=== PATIENT | male | born 1980 | race Caucasian/White ===

== ENCOUNTER 2016-08-24 11:06 | Emergency (ER) ==
[2016-08-24 11:13] VITALS: BP 170/120; TEMP 97.1; BMI 33.9
[2016-08-24 12:10] LABS: BASOPHILS % (AUTO) 0.3 % (0.0-3.0); EOSINOPHILS # (AUTO) 0.1 K/ul (0.0-0.7); EOSINOPHILS % (AUTO) 0.8 % (0.0-7.0); HEMATOCRIT 49.8 % (42.0-52.0); HEMOGLOBIN 17.4 g/dl (14.0-18.0); IMMATURE GRANULOCYTE % (AUTO) 0.2 % (0.0-5.0); LYMPHOCYTES # (AUTO) 2.2 K/uL (0.60-3.4); LYMPHOCYTES % (AUTO) 20.3 (10.0-50.0); MEAN CORPUSCULAR HEMOGLOBIN 30.9 pg (27.0-31.0); MEAN CORPUSCULAR HGB CONC 34.9 (31.8-35.4); MEAN CORPUSCULAR VOLUME 88.5 fl (80.0-94.0); MONOCYTES # (AUTO) 0.8 K/uL (0.4-2.0); MONOCYTES % (AUTO) 7.1 (0-10); NEUTROPHILS # (AUTO) 7.6 K/ul (2.0-6.9); NEUTROPHILS % (AUTO) 71.3; PLATELET COUNT 210 10^3/uL (140-440); RED BLOOD COUNT 5.63 10^6/ul (4.70-6.10); WHITE BLOOD COUNT 10.66 K/ul (4.2-10.2)
[2016-08-24 12:24] LABS: PARTIAL THROMBOPLASTIN TIME 27.6 SEC (23.9-40.0); PROTHROMBIN TIME 10.4 SEC (9.3-11.0)
[2016-08-24 12:47] LABS: ALANINE AMINOTRANSFERASE 31 U/L (12-78); ALBUMIN 4.2 g/dL (3.4-5.0); ALBUMIN/GLOBULIN RATIO 1.27; ALKALINE PHOSPHATASE 105 U/L (50-136); ANION GAP 10.6; ASPARTATE AMINO TRANSFERASE 21 U/L (15-37); BILIRUBIN,TOTAL 0.53 mg/dL (0.00-1.20); BLOOD UREA NITROGEN 11 mg/dL (7-18); BUN/CREATININE RATIO 10.57; CALCIUM 9.6 mg/dL (8.2-10.2); CARBON DIOXIDE 32 mmol/L (21-32); CHLORIDE 103 mmol/L (98-107); CREATINE KINASE 117 U/L; CREATININE 1.04 mg/dL (0.60-1.10); GLUCOSE 96 mg/dL (70-100); POTASSIUM 4.6 mmol/L (3.5-5.1); SODIUM 141 mmol/L (136-145); TOTAL PROTEIN 7.5 g/dL (6.4-8.2)
[2016-08-24 12:49] LABS: CREATINE KINASE MB 3.8 ng/ml (0.0-3.6)
--- NOTE | 2016-08-24 14:24 | CT ---
EXAM: CT angiography chest HISTORY: Pain between shoulder extending to neck COMPARISON: CT chest 08/11/2014 TECHNIQUE: CT angiography chest performed with intravenous contrast. Coronal and sagittal reformat jose r images obtained. FINDINGS: Thyroid and thoracic inlet appear normal. Heart is normal in size. No pericardial effus ion. No mediastinal, hilar, or axillary lymphadenopathy. Esophagus appears normal. Visualized por tion upper abdomen demonstrates no acute abnormality. No acute abnormalities of the bones. Central airway patent. Lungs are clear. No pleural effusion or pneumothorax. Aorta normal in caliber. No aortic dissection. No filling defects in the pulmonary arteries to suggest a pulmonary embolism. IMPRESSION: 1. No aortic dissection, aneurysm, or pulmonary embolism. 2. No acute cardiopulmonary process.
[2016-08-24] MEDS ORDERED: ZESTRIL PO STA (14:36)
--- NOTE | 2016-08-24 14:47 | ED.PDOC ---
General ED Provider: Dr. RILEY MISHRA Chief Complaint: Back Pain Stated Complaint: PAIN BETWEEN SHOULDER BLADES Time Seen by Physician: 11:10 Mode of Arrival: Walk-In Information Source: Patient Exam Limitations: No limitations Nursing and Triage Documentation Reviewed and Agree: Yes Musculoskeletal Complaint Exam - Back Pain Complaint/Exam Mechanism of Injury: Reports: No known trauma Onset/Duration: 1 DAY PAIN T SPINE Symptoms Are: Resolved Timing: Constant Episodes Lasting: Hours Initial Severity: Moderate Current Severity: Mild Location: Reports: Discrete Character: Reports: Aching Aggravating: Reports: Movements Alleviating: Reports: Rest Associated Signs and Symptoms: Denies: Swelling, Redness, Bruising, Fever, Weakness, Numbness, Tingling, Abdominal pain, Flank pain, Bladder incontinence, Bowel incontinence, Weight loss, Pain with weight bearing Related History: Reports: Similar episode Review of Systems - Review Of Systems Constitutional: Reports: No symptoms Eyes: Reports: No symptoms Ears, Nose, Mouth, Throat: Reports: No symptoms Respiratory: Reports: No symptoms Cardiac: Reports: No symptoms GI: Reports: No symptoms : Reports: No symptoms Musculoskeletal: Reports: Back pain Skin: Reports: No symptoms Neurological: Reports: No symptoms Endocrine: Reports: No symptoms Hematologic/Lymphatic: Reports: No symptoms All Other Systems: Reviewed and Negative Past Medical History - Past Medical History Previously Healthy: Yes Endocrine: Reports: None Cardiovascular: Reports: None Respiratory: Reports: None Hematological: Reports: None Gastrointestinal: Reports: None Genitourinary: Reports: None Neuro/Psych: Reports: None Musculoskeletal: Reports: None Cancer: Reports: None - Surgical History General Surgical History: Reports: None (history of substance abuse) - Family History Family History: Reports: Unknown - Social History Smoking Status: Current every day smoker, Heavy tobacco smoker Hx Substance Use: Yes ([facility]) Alcohol Screening: None Physical Exam - Physical Exam Appearance: Well-appearing, No pain distress, Well-nourished Eyes: LOLLY, EOMI, Conjunctiva clear ENT: Ears normal, Nose normal, Oropharynx normal Respiratory: Airway patent, Breath sounds clear, Breath sounds equal, Respirations nonlabored Cardiovascular: RRR, Pulses normal, No rub, No murmur GI/: Soft, Nontender, No masses, Bowel sounds normal, No Organomegaly Musculoskeletal: Normal strength, ROM intact, No edema, No calf tenderness Skin: Warm, Dry, Normal color Neurological: Sensation intact, Motor intact, Reflexes intact, Cranial nerves intact, Alert, Oriented Psychiatric: Affect appropriate, Mood appropriate Interpretation - Radiology Interpretation Radiology Interpretation By: Radiologist Radiology Results: No acute changes Critical Care Note - Critical Care Note Total Time (mins): 0 Course - Course Hematology/Chemistry: 08/24/16 12:06 08/24/16 12:06 Orders, Labs, Meds: Lab Review 08/24/16 12:06 WBC 10.66 H RBC 5.63 Hgb 17.4 Hct 49.8 MCV 88.5 MCH 30.9 MCHC 34.9 RDW Coeff of Ava 12.6 Plt Count 210 Immature Gran % (Auto) 0.2 Neut % (Auto) 71.3 Lymph % (Auto) 20.3 [place] % (Auto) 7.1 Eos % (Auto) 0.8 Baso % (Auto) 0.3 Immature Gran # (Auto) 0.0 Neut # 7.6 H Lymph # 2.2 Sp[place]ding # 0.8 Eos # 0.1 Baso # 0.0 PT 10.4 INR 1.01 APTT 27.6 Sodium 141 Potassium 4.6 Chloride 103 Carbon Dioxide 32 Anion Gap 10.6 BUN 11 Creatinine 1.04 Estimated GFR (MDRD) 81.00 BUN/Creatinine Ratio 10.57 Glucose 96 Calcium 9.6 Total Bilirubin 0.53 AST 21 ALT 31 Alkaline Phosphatase 105 Total Creatine Kinase 117 CK-MB (CK-2) 3.8 H CK-MB (CK-2) % 3.59093 Troponin I < 0.0100 Total Protein 7.5 Albumin 4.2 Globulin 3.3 Albumin/Globulin Ratio 1.27 Orders Category Date Time Status EKG-(ED ONLY) Stat CARDIO 08/24/16 11:58 Completed NPO REMINDER: IMAGING ONCE CARE 08/24/16 11:59 Completed CBC W/ AUTO DIFF Stat LAB 08/24/16 12:06 Completed COMPREHENSIVE METABOLIC PANEL Stat LAB 08/24/16 12:06 Completed CREATINE KINASE Stat LAB 08/24/16 12:06 Completed PARTIAL THROMBOPLASTIN TIME Stat LAB 08/24/16 12:06 Completed PT WITH INR Stat LAB 08/24/16 12:06 Completed TROPONIN I Stat LAB 08/24/16 12:06 Completed Lisinopril [Zestril] MEDS 08/24/16 14:36 Discontinued 20 mg PO ONCE STA CTA ANGIO CHEST Stat RADS 08/24/16 11:59 Completed Medications Discontinued Medications Generic Name Dose Route Start Last Admin Trade Name Freq PRN Reason Stop Dose Admin Lisinopril 20 mg 08/24/16 14:36 08/24/16 14:43 Zestril PO 08/24/16 14:37 20 mg ONCE STA Administration Vital Signs: Temp Pulse Resp BP Pulse Ox 08/24/16 11:06 97.1 F L 82 18 170/120 H 98 Departure - Departure Time of Disposition: 15:12 Disposition: HOME SELF-CARE Discharge Problem: Backache Hypertension Qualifiers: Hypertension type: unspecified secondary hypertension Qualifier Code: (I15.9) Secondary hypertension, unspecified Instructions: Acute Low Back Pain (ED), Hypertension (ED) Condition: Good Pt referred to PMD for follow-up: No Additional Instructions: Please call your Family Physician as soon as possible to schedule a follow-up appointment. Prescriptions: Hydrocodone/Acetaminophen [K[place] 5-325 Tablet] 1 each PO Q6HR PRN #6 tablet PRN Reason: PAIN Lisinopril 20 mg PO DAILY #10 tablet Allergies/Adverse Reactions: Allergies No Known Allergies Allergy (Verified 08/24/16 11:13) Home Medications: Ambulatory Orders Hydrocodone/Acetaminophen [K[place] 5-325 Tablet] 1 each PO Q6HR PRN #6 tablet Lisinopril 20 mg PO DAILY #10 tablet 08/24/16 Disposition Discussed With: Patient, Family
== END 2016-08-24 15:11 | disposition home or self-care (01) ==
LOC: ED 11:06
DX: M54.6 Pain in thoracic spine (principal); I10 Essential (primary) hypertension; F17.210 Nicotine dependence, cigarettes, uncomplicated
CPT/HCPCS: 36415; 80053; 82550; 82553; 84484; 85025; 85610; 85730; 93005; 93010; 99283

== ENCOUNTER 2017-05-22 11:59 | Emergency (ER) ==
[2017-05-22 12:03] VITALS: BP 151/99; TEMP 99.2; BMI 27.1
--- NOTE | 2017-05-22 12:13 | ED.PDOC ---
General ED Provider: Dr. RILEY MISHRA Chief Complaint: Cough Stated Complaint: cough Time Seen by Physician: 12:00 Mode of Arrival: Walk-In Information Source: Patient Exam Limitations: No limitations Nursing and Triage Documentation Reviewed and Agree: Yes Reviewed sepsis parameters & appropriate labs ordered?: Yes System Inflammatory Response Syndrome: Not Applicable Sepsis Protocol: For patient's 13 years and over: Temp is 96.8 and below OR 101 and greater Pulse >90 BPM Resp >20/minute Acutely Altered Mental Status Are patient's symptoms suggestive of a new infection, such as: -Pneumonia -Skin, Soft Tissue -Endocarditis -UTI -Bone, Joint Infection -Implantable Device -Acute Abdominal Infection -Wound Infection -Meningitis -Blood Stream Catheter Infection -Unknown Respiratory Complaint Exam - Respiratory Complaint/Exam Onset/Duration: 1 week Symptoms Are: Still present Timing: Intermittent Initial Severity: Mild Current Severity: Mild Location: Nose, Throat, Chest Character: Reports: Non-productive cough Aggravating: Reports: None Alleviating: Reports: None Associated Signs and Symptoms: Denies: Rapid breathing, Dyspnea, Fever, Chills, Chest pain, Pleuritic chest pain, Wheezing, Hemoptysis, Dizziness, Calf pain, Calf swelling, Edema, URI, Nasal congestion, Hoarseness, Sinus discomfort, Vomiting, Sore throat, Weight loss, Decreased oral intake, Increased thirst, Increased appetite, Increased urination Related History: Reports: Similar episode History of Healthcare-Acquired Pneumonia: No Related Surgical History: Reports: None Pulmonary Embolism Risk Factors: Smoking Pseudomonas Risk Factors: Reports: None Tuberculosis Risk Factors: Reports: None Status Asthmaticus Risk Factors: Reports: None Home Oxygen Use: No Recent Stress Test: No Recent Echo/LV Function: No Current Antibiotic Use: No Current Asthma Medication Use: No Respiratory Distress: None Inadequate Respiratory Effort: No Dysphagia Present: No Stridor Present: No JVD Present: No Retractions: Not Present Sinus Tenderness: None Grunting Respirations: No Kussmaul Respirations: No Differential Diagnoses: Bronchitis Review of Systems - Review Of Systems Constitutional: Reports: Malaise Eyes: Reports: No symptoms Ears, Nose, Mouth, Throat: Reports: No symptoms Respiratory: Reports: Cough Cardiac: Reports: No symptoms GI: Reports: No symptoms : Reports: No symptoms Musculoskeletal: Reports: No symptoms Skin: Reports: No symptoms Neurological: Reports: No symptoms Endocrine: Reports: No symptoms Hematologic/Lymphatic: Reports: No symptoms All Other Systems: Reviewed and Negative Past Medical History - Past Medical History Previously Healthy: Yes Endocrine: Reports: None Cardiovascular: Reports: None Respiratory: Reports: None Hematological: Reports: None Gastrointestinal: Reports: None Genitourinary: Reports: None Neuro/Psych: Reports: None Musculoskeletal: Reports: None Cancer: Reports: None - Surgical History General Surgical History: Reports: None (history of substance abuse) - Family History Family History: Reports: Unknown - Social History Smoking Status: Current every day smoker, Light tobacco smoker Hx Substance Use: Yes ([facility]) Alcohol Screening: None Physical Exam - Physical Exam Appearance: Well-appearing, No pain distress, Well-nourished Eyes: LOLLY, EOMI, Conjunctiva clear ENT: Ears normal, Nose normal, Oropharynx normal Respiratory: Rhonchi Cardiovascular: RRR, Pulses normal, No rub, No murmur GI/: Soft, Nontender, No masses, Bowel sounds normal, No Organomegaly Musculoskeletal: Normal strength, ROM intact, No edema, No calf tenderness Skin: Warm, Dry, Normal color Neurological: Sensation intact, Motor intact, Reflexes intact, Cranial nerves intact, Alert, Oriented Psychiatric: Affect appropriate, Mood appropriate Critical Care Note - Critical Care Note Total Time (mins): 0 Course - Course Vital Signs: Temp Pulse Resp BP Pulse Ox 05/22/17 11:59 99.2 F 99 H 16 151/99 H 99 Departure - Departure Time of Disposition: 12:13 Disposition: HOME SELF-CARE Discharge Problem: Cough, Bronchitis Instructions: Acute Bronchitis (ED) Condition: Good Pt referred to PMD for follow-up: Yes Allergies/Adverse Reactions: Allergies No Known Allergies Allergy (Verified 05/22/17 12:05) Home Medications: Ambulatory Orders Lisinopril 20 mg PO DAILY #10 tablet 08/24/16
== END 2017-05-22 12:25 | disposition home or self-care (01) ==
LOC: ED 11:59
DX: J40 Bronchitis, not specified as acute or chronic (principal); F17.210 Nicotine dependence, cigarettes, uncomplicated
CPT/HCPCS: 99282

== ENCOUNTER 2017-06-27 12:50 | Emergency (ER) ==
[2017-06-27 12:56] VITALS: BP 151/102; TEMP 97; BMI 28.5
--- NOTE | 2017-06-27 13:23 | ED.PDOC ---
General ED Provider: Dr. RILEY MISHRA Chief Complaint: Tooth Problem Stated Complaint: dental pain Time Seen by Physician: 13:00 Mode of Arrival: Walk-In Information Source: Patient Exam Limitations: No limitations Nursing and Triage Documentation Reviewed and Agree: Yes Reviewed sepsis parameters & appropriate labs ordered?: Yes System Inflammatory Response Syndrome: Not Applicable Sepsis Protocol: For patient's 13 years and over: Temp is 96.8 and below OR 101 and greater Pulse >90 BPM Resp >20/minute Acutely Altered Mental Status Are patient's symptoms suggestive of a new infection, such as: -Pneumonia -Skin, Soft Tissue -Endocarditis -UTI -Bone, Joint Infection -Implantable Device -Acute Abdominal Infection -Wound Infection -Meningitis -Blood Stream Catheter Infection -Unknown System Inflammatory Response Syndrome: Not Applicable EENT Complaint Exam - Dental/Oral Complaint/Exam Mechanism of Injury: No known trauma Onset/Duration: 1 week Symptoms Are: Still present Timing: Constant Initial Severity: Moderate Current Severity: Moderate Character: Reports: Aching Aggravating: Reports: Heat, Cold Alleviating: Reports: Heat, Cold Associated Signs and Symptoms: Denies: Swelling, Discharge, Fever, Foul odor, Foul taste in mouth Related History: Reports: Similar episode Cardiac Risk Factors: Reports: None Dental/Oral Surgical History: Reports: None Tooth Findings: Present: Gross decay, Gross caries, Dental fracture Cervical Lymphadenopathy Present: No Facial Swelling Present: No Bleeding Present: No Septal Hematoma: No Foreign Body Present: No Dysphagia Present: No Drooling Present: No Asymmetrical Tonsillar Swelling Present: No Uvula Midline: No Radha-tonsillar Fluctuence: No Trismus Present: No Palatal Petechiae Present: No Scarlatinaform Rash Present: No Differential Diagnoses: Dental Caries, Fractured Tooth Review of Systems - Review Of Systems Constitutional: Reports: No symptoms Eyes: Reports: No symptoms Ears, Nose, Mouth, Throat: Reports: No symptoms Respiratory: Reports: No symptoms Cardiac: Reports: No symptoms GI: Reports: No symptoms : Reports: No symptoms Musculoskeletal: Reports: No symptoms Skin: Reports: No symptoms Neurological: Reports: No symptoms Endocrine: Reports: No symptoms Hematologic/Lymphatic: Reports: No symptoms All Other Systems: Reviewed and Negative Past Medical History - Past Medical History Previously Healthy: Yes Endocrine: Reports: None Cardiovascular: Reports: None Respiratory: Reports: None Hematological: Reports: None Gastrointestinal: Reports: None Genitourinary: Reports: None Neuro/Psych: Reports: None Musculoskeletal: Reports: None Cancer: Reports: None - Surgical History General Surgical History: Reports: None (history of substance abuse) - Family History Family History: Reports: Unknown - Social History Smoking Status: Current every day smoker Hx Substance Use: No Alcohol Screening: Occasionally - Immunizations Tetanus Shot up to Date: No Physical Exam - Physical Exam Appearance: Well-appearing, No pain distress, Well-nourished Eyes: LOLLY, EOMI, Conjunctiva clear ENT: Ears normal, Nose normal, Oropharynx normal Respiratory: Airway patent, Breath sounds clear, Breath sounds equal, Respirations nonlabored Cardiovascular: RRR, Pulses normal, No rub, No murmur GI/: Soft, Nontender, No masses, Bowel sounds normal, No Organomegaly Musculoskeletal: Normal strength, ROM intact, No edema, No calf tenderness Skin: Warm, Dry, Normal color Neurological: Sensation intact, Motor intact, Reflexes intact, Cranial nerves intact, Alert, Oriented Psychiatric: Affect appropriate, Mood appropriate Critical Care Note - Critical Care Note Total Time (mins): 0 Course - Course Vital Signs: Temp Pulse Resp BP Pulse Ox 06/27/17 12:51 97.0 F L 74 18 151/102 H 98 Departure - Departure Time of Disposition: 13:20 Disposition: HOME SELF-CARE Discharge Problem: Toothache Instructions: Toothache (ED) Condition: Good Pt referred to PMD for follow-up: Yes IPMP verified?: Yes Additional Instructions: Please call your Family Physician as soon as possible to schedule a follow-up appointment.Please call your Family Physician as soon as possible to schedule a follow-up appointment. Allergies/Adverse Reactions: Allergies No Known Allergies Allergy (Verified 05/22/17 12:05) Home Medications: Ambulatory Orders Lisinopril 20 mg PO DAILY #10 tablet 08/24/16 Disposition Discussed With: Patient
== END 2017-06-27 13:26 | disposition home or self-care (01) ==
LOC: ED 12:50
DX: K08.89 Other specified disorders of teeth and supporting structures (principal); K02.7 Dental root caries; S02.5XXA Fracture of tooth (traumatic), initial encounter for closed fracture; F17.210 Nicotine dependence, cigarettes, uncomplicated
CPT/HCPCS: 99281

== ENCOUNTER 2017-10-29 00:01 | Emergency (ER) | payer OTHER ==
[2017-10-29 00:09] VITALS: BP 168/100; TEMP 100; BMI 29.1
[2017-10-29] MEDS ORDERED: LIDOCAINE HCL 1% SDV IM STA (00:17)
[2017-10-29] MEDS ORDERED: TYLENOL PO STA (00:17)
[2017-10-29] MEDS ORDERED: ROCEPHIN IM STA (00:17)
[2017-10-29] MEDS ORDERED: PREDNISONE PO STA (00:17)
--- NOTE | 2017-10-29 00:25 | ED.PDOC ---
General ED Provider: Dr. JED HINKLE Chief Complaint: Fever Stated Complaint: sore throat, hurts to swallow. bodyaches. fever chills Time Seen by Physician: 00:19 Mode of Arrival: Walk-In Information Source: Patient Nursing and Triage Documentation Reviewed and Agree: Yes Reviewed sepsis parameters & appropriate labs ordered?: Yes System Inflammatory Response Syndrome: Not Applicable Sepsis Protocol: For patient's 13 years and over: Temp is 96.8 and below OR 101 and greater Pulse >90 BPM Resp >20/minute Acutely Altered Mental Status Are patient's symptoms suggestive of a new infection, such as: -Pneumonia -Skin, Soft Tissue -Endocarditis -UTI -Bone, Joint Infection -Implantable Device -Acute Abdominal Infection -Wound Infection -Meningitis -Blood Stream Catheter Infection -Unknown EENT Complaint Exam - Throat Complaint/Exam Symptoms Are: Still present Timimg: Constant Initial Severity: Moderate Current Severity: Moderate Aggravating: Reports: Eating Alleviating: Reports: None Associated Signs and Symptoms: Reports: Fever, Dysphagia Uvula Midline: Yes Radha-tonsillar Fluctuence: No Scarlatinaform Rash Present: No Stridor Present: No Sinus Tenderness Present: No Tonsillar Hypertrophy Present: Yes Tonsillar Exudate Present: Yes Radha-tonsillar Swelling Present: No Adenopathy Present: Yes Splenomegaly Present: No Differential Diagnoses: Pharyngitis, Tonsillitis Review of Systems - Review Of Systems Constitutional: Reports: No symptoms, Chills Eyes: Reports: No symptoms Ears, Nose, Mouth, Throat: Reports: No symptoms Respiratory: Reports: No symptoms Cardiac: Reports: No symptoms GI: Reports: No symptoms : Reports: No symptoms Musculoskeletal: Reports: No symptoms Skin: Reports: No symptoms Neurological: Reports: No symptoms Endocrine: Reports: No symptoms Hematologic/Lymphatic: Reports: No symptoms All Other Systems: Reviewed and Negative Past Medical History - Past Medical History Previously Healthy: Yes Endocrine: Reports: None Cardiovascular: Reports: None Respiratory: Reports: None Hematological: Reports: None Gastrointestinal: Reports: None Genitourinary: Reports: None Neuro/Psych: Reports: None Musculoskeletal: Reports: None Cancer: Reports: None - Surgical History General Surgical History: Reports: None (history of substance abuse) - Family History Family History: Reports: Unknown - Social History Smoking Status: Current every day smoker, Heavy tobacco smoker Hx Substance Use: No Alcohol Screening: Occasionally - Immunizations Tetanus Shot up to Date: Yes Physical Exam - Physical Exam Appearance: Ill-appearing, Obese Eyes: LOLLY, EOMI, Conjunctiva clear ENT: Erythema, Exudate Respiratory: Airway patent, Breath sounds clear, Breath sounds equal, Respirations nonlabored Cardiovascular: RRR, Pulses normal, No rub, No murmur GI/: Soft, Nontender, No masses, Bowel sounds normal, No Organomegaly Musculoskeletal: Normal strength, ROM intact, No edema, No calf tenderness Skin: Warm, Dry, Normal color Neurological: Sensation intact, Motor intact, Reflexes intact, Cranial nerves intact, Alert, Oriented Psychiatric: Affect appropriate, Mood appropriate Critical Care Note - Critical Care Note Total Time (mins): 20 Course - Course Orders, Labs, Meds: Orders Category Date Time Status MOLECULAR GROUP A STREP Stat LAB 10/29/17 00:17 Uncollected Acetaminophen [Tylenol] MEDS 10/29/17 00:17 Stat 500 mg PO ONCE STA Ceftriaxone Sodium [Rocephin] MEDS 10/29/17 00:17 Stat 1 gm IM ONCE STA Lidocaine HCl/Pf [Lidocaine HCl 1% Sdv] MEDS 10/29/17 00:17 Stat 2.1 ml IM ONCE STA Prednisone MEDS 10/29/17 00:17 Stat 10 mg PO ONCE STA Medications Discontinued Medications Generic Name Dose Route Start Last Admin Trade Name Freq PRN Reason Stop Dose Admin Acetaminophen 500 mg 10/29/17 00:17 Tylenol PO 10/29/17 00:18 ONCE STA Ceftriaxone Sodium 1 gm 10/29/17 00:17 Rocephin IM 10/29/17 00:18 ONCE STA Lidocaine HCl 2.1 ml 10/29/17 00:17 Lidocaine Hcl 1% Sdv IM 10/29/17 00:18 ONCE STA Prednisone 10 mg 10/29/17 00:17 Prednisone PO 10/29/17 00:18 ONCE STA Vital Signs: Temp Pulse Resp BP Pulse Ox 10/29/17 00:01 100.0 F H 127 H 16 168/100 H 95 Departure - Departure Time of Disposition: 00:35 Disposition: HOME SELF-CARE Discharge Problem: Tonsillitis Instructions: Tonsillitis (ED) Condition: Stable Pt referred to PMD for follow-up: Yes IPMP verified?: No Additional Instructions: Tylenol prn Increase Hydration f/u [facility] in 3-4 days Prescriptions: Amoxicillin/Potassium Clav [Augmentin 875-125 mg Tab] 1 tab PO Q8H #21 tablet Allergies/Adverse Reactions: Allergies No Known Allergies Allergy (Verified 10/29/17 00:05) Home Medications: Ambulatory Orders Amoxicillin/Potassium Clav [Augmentin 875-125 mg Tab] 1 tab PO Q8H #21 tablet Clindamycin Phosphate [Cleocin Phosphate] 150 mg PO TID 10/29/17 Hydrocodone/Acetaminophen [[place] 10-325 Tablet] 1 each PO Q8HR PRN 10/29/17 Disposition Discussed With: Patient
== END 2017-10-29 00:55 | disposition home or self-care (01) ==
LOC: ED 00:01
DX: J03.90 Acute tonsillitis, unspecified (principal); F17.210 Nicotine dependence, cigarettes, uncomplicated
CPT/HCPCS: 87651; 96372; 99283

== ENCOUNTER 2018-08-06 14:45 | Emergency (ER) ==
[2018-08-06 14:48] VITALS: BP 158/94; TEMP 98.1; BMI 30.2
--- NOTE | 2018-08-06 15:15 | ED.PDOC ---
General ED Provider: Dr. TIFFANIE HAILE Chief Complaint: Tooth Problem Stated Complaint: left lower bank periodontal abscess Time Seen by Physician: 14:30 Mode of Arrival: Walk-In Information Source: Patient Exam Limitations: No limitations Primary Care Provider: LUDIN FULLER Nursing and Triage Documentation Reviewed and Agree: Yes Does patient meet sepsis criteria?: No System Inflammatory Response Syndrome: Not Applicable Sepsis Protocol: For patient's 13 years and over: Temp is 96.8 and below OR 101 and greater Pulse >90 BPM Resp >20/minute Acutely Altered Mental Status Are patient's symptoms suggestive of a new infection, such as: -Pneumonia -Skin, Soft Tissue -Endocarditis -UTI -Bone, Joint Infection -Implantable Device -Acute Abdominal Infection -Wound Infection -Meningitis -Blood Stream Catheter Infection -Unknown EENT Complaint Exam - Dental/Oral Complaint/Exam Onset/Duration: few days Symptoms Are: Still present Timing: Constant Initial Severity: Moderate Current Severity: Moderate Character: Reports: Dull, Aching, Throbbing Aggravating: Reports: Chewing, Exertion Alleviating: Reports: Topical meds Associated Signs and Symptoms: Reports: Swelling Related History: Reports: Similar episode Cardiac Risk Factors: Reports: Hypertension Dental/Oral Surgical History: Reports: None Tooth Findings: Present: Gross decay, Gross caries Cervical Lymphadenopathy Present: No Facial Swelling Present: Yes Bleeding Present: No Septal Hematoma: No Foreign Body Present: No Dysphagia Present: No Drooling Present: No Asymmetrical Tonsillar Swelling Present: No Uvula Midline: Yes Radha-tonsillar Fluctuence: No Trismus Present: No Palatal Petechiae Present: No Scarlatinaform Rash Present: No Lesions: Present: Gums Differential Diagnoses: Odontogenic Pain, Peritonsillar Abcess Review of Systems - Review Of Systems Constitutional: Reports: No symptoms Eyes: Reports: No symptoms Ears, Nose, Mouth, Throat: Reports: No symptoms Respiratory: Reports: No symptoms Cardiac: Reports: No symptoms GI: Reports: No symptoms : Reports: No symptoms Musculoskeletal: Reports: No symptoms Skin: Reports: No symptoms Neurological: Reports: No symptoms Endocrine: Reports: No symptoms Hematologic/Lymphatic: Reports: No symptoms All Other Systems: Reviewed and Negative Past Medical History - Past Medical History Previously Healthy: Yes Endocrine: Reports: None Cardiovascular: Reports: None Respiratory: Reports: None Hematological: Reports: None Gastrointestinal: Reports: None Genitourinary: Reports: None Neuro/Psych: Reports: None Musculoskeletal: Reports: None Cancer: Reports: None - Surgical History General Surgical History: Reports: None (history of substance abuse) - Family History Family History: Reports: Unknown - Social History Smoking Status: Current every day smoker, Heavy tobacco smoker Hx Substance Use: No Alcohol Screening: Occasionally Physical Exam - Physical Exam Appearance: Well-appearing Ill-appearing: None Pain Distress: Moderate Eyes: LOLLY ENT: Ears normal Respiratory: Airway patent Cardiovascular: RRR GI/: Soft Musculoskeletal: Normal strength Skin: Warm Neurological: Sensation intact Critical Care Note - Critical Care Note Total Time (mins): 0 Course - Course Vital Signs: Temp Pulse Resp BP Pulse Ox 08/06/18 14:45 98.1 F 96 H 18 158/94 H 97 Departure - Departure Time of Disposition: 15:25 Disposition: HOME SELF-CARE Discharge Problem: Dental abscess Instructions: Dental Abscess (ED) Condition: Good Pt referred to PMD for follow-up: No (to dentist) IPMP verified?: No Allergies/Adverse Reactions: Allergies No Known Allergies Allergy (Verified 08/06/18 14:48) Home Medications: Ambulatory Orders 1 [No Reported Medications] 08/06/18 Disposition Discussed With: Patient
[2018-08-06] MEDS ORDERED: TORADOL IM STA (15:19)
== END 2018-08-06 15:30 | disposition home or self-care (01) ==
LOC: ED 14:45
DX: K08.89 Other specified disorders of teeth and supporting structures (principal); K04.7 Periapical abscess without sinus; K02.7 Dental root caries; I10 Essential (primary) hypertension; F17.210 Nicotine dependence, cigarettes, uncomplicated
CPT/HCPCS: 99282